=== PATIENT | male | born 1975 | race Caucasian/White ===

== ENCOUNTER 2025-02-02 09:06 | Emergency (ER) | payer BC, SELFPAY ==
[2025-02-02 09:11] VITALS: BP 135/74
[2025-02-02] MEDS: TORADOL 15 MG IV (11:15)
[2025-02-02] MEDS: TYLENOL 650 MG PO (11:16)
[2025-02-02] MEDS: NSS 1000 IV (11:16)
--- NOTE | 2025-02-02 11:26 | ED.GENMED ---
History of Present Illness
General
Chief Complaint: Fever
Source: patient
Exam Limitations: none
Time Seen by Provider: 02/02/25 09:59
Nursing documentation reviewed up to this point in time: agreed with
History of Present Illness
History of Present Illness:
49 y/o M
h/o depression
here afer noticing a red woody on R thigh, not painful, not itchy, 4 days ago
then developed symptoms of feeling fatigued, headache, malaise, and some elevated HR
he wasn't aware of a fever until last night
he went to another ER and had temp of 101 and was treated with tylenol
he ended up leaving without treatment due to long wait time
took another ose of tylenol at 1 am and woke up feeling wiped out so he came in
he also noticed his urine was dark
no syncope, neck stiffness, diffuse rash, trouble breathing, chest pain, joint effusions, confusion
pt says that he pulled a small tick off his R thigh abuot 2 weeks ago that he presumed was not on long
he has never had lyme
while riding his bike 2 days ago he had some back pain that wwas worse than he normally feels while riding
Past History
Past History
ED Past Medical History: Psychiatric
ED Past Surgical History: Orthopedic and Other ([place] teeth)
Social History
Tobacco: Non-smoker
Alcohol: Occasional
Personal:
Living: with family
Family History
Family History: Cancer; Negative Diabetes, Hypertension, Early CAD or Asthma
Review of Systems
Review of Systems
Allergies reviewed?: Yes
All Other Systems: Not applicable
Phy Exam
Physical Exam
Physical Exam:
GENERAL: Alert , in no apparent distress
EYE: pupils equal and reactive
NECK: Supple
ENT: o/p clr, mmm.
CARDIAC: Regular rate and rhythm .
LUNGS: Clear breath sounds bilaterally, no acute respiratory distress, no wheezes/rales/rhonchi
ABDOMEN: Soft, without focal tenderness, no r/g, no cvat, normal bowel sounds
NEUROLOGICAL: Alert and oriented, no focal neuro deficits, cn intact, no facial palsy
SKIN: Warm and dry, skin intact.
annular flat erytheatmous plaque with deeper red int he center, more pink on the outside; no central clearing
MUSCULOSKELETAL: No edema, well perfused. neg isabel's sign
PSYCH: Normal and appropriate interaction.
Sepsis
Sepsis Screening
Sepsis Assessment: Sepsis Ruled Out
Sepsis Screen
Sepsis Screen: Sepsis Ruled Out
Date: 02/02/25
Time: 17:08
Course
Orders/Labs/Results
Orders:
Orders
02/02/25 10:36
0.9% Sodium Chloride 1000 ml [Nss] 1,000 ml IV BOLUS
Acetaminophen [Tylenol] 650 mg PO NOW STA
Ketorolac [Toradol] 15 mg IV NOW STA
02/02/25 11:00
Lyme Progressive Urgent
02/02/25 11:08
CPK [Creatine Phosphokinase] Urgent
Complete Blood Count/With Diff Urgent
Comprehensive Metabolic Panel Urgent
Lactic Acid Urgent
Urinalysis Reflex To Culture Urgent
Date Specimen was Collected: 02/02/25
Time Specimen was Collected: 10:41
Urine Microscopic Reflex Cult Urgent
Blood Culture Urgent
AIDE Source: Blood/Venous
Specimen Description:
Urine Culture Urgent
AIDE Source: U
Specimen Description:
Date Specimen was Collected: 02/02/25
Time Specimen was Collected: 10:41
02/02/25 12:21
CT Abd/pel Without Iv Or Oral Urgent
Comment:
Reason For Exam: back pain, hematuria, fever
02/02/25 13:09
0.9% Sodium Chloride 500 ml [Nss] 500 ml IV BOLUS
02/02/25 13:59
Doxycycline [Vibramycin] 100 mg PO NOW STA
02/02/25 14:08
Electrocardiogram (*1) Urgent
Reason for Study: Tachycardia
EKG- Treatment ONCE
Abnormal Lab Results
02/02/25
11:08
WBC 3.4 L 10^3/uL
(4.8-10.8)
RBC 4.59 L 10^6/uL
(4.70-6.10)
MCH 32.2 H pg
(27.0-31.0)
Absolute Lymphs (auto) 0.4 L 10^3/uL
(1.2-3.4)
Lymphocytes % 12.6 L %
(20.5-51.1)
Monocytes % 13.5 H %
(1.7-9.3)
Glucose 122 H mg/dl
(70-99)
Total Bilirubin 2.4 H mg/dl
(0.2-1.3)
Ur Occult Blood Reflex 2+ A
(Negative)
Urine Bilirubin 1+ A
(Negative)
Leukocyte Esterase Rfl 1+ A
(Negative)
Urine RBC 3-6 A /HPF
(0-2)
Urine Albumin (Reflex) 2+ A
(Neg - Trace)
02/02/25 11:08
02/02/25 11:08
Vital Signs
Initial and Last Documented VS:
Initial Vital Signs
Temp Pulse Resp BP Pulse Ox
38.6 C H 91 16 135/74 96
02/02/25 09:11 02/02/25 09:11 02/02/25 09:11 02/02/25 09:11 02/02/25 09:11
Last Documented Vital Signs
Temp Pulse Resp BP Pulse Ox
37.2 C 84 18 126/84 99
02/02/25 13:40 02/02/25 15:10 02/02/25 15:10 02/02/25 15:10 02/02/25 15:10
MDM/Problems Addressed
Differential Diagnosis Includes:
lyme disease, uti, kidney stone, viral s yndrome, cellulitis
MDM/Problems Addressed:
49 y/o M
no pmh
here with nonpainful nonitchy rash to R thigh x 4 days now with fever x 2 days with headache, bodyaches, malaise
pulled small tick off himself 2 weeks ago
no cold symptoms, cough, neck stiffness, confusion, join pain, facial palsy
did feel his hr was elevated, but wasn't aware he had a fever until ysteray
no syncope or ches tpain
well appearing
febrile
nontoxic
neck supple
lungs clear
no murmur
redness circular R thigh approx 4 cm x 3 cm with darker area in the center, not raised, not tender
could be ECM
will empirically cover with abx
therw as a quetinoa bout R back pain while riding bike 2 days ago, and now he has jose urine; with rbcs, not infected looking but also with bili
he chronically has t bili elevation he has been told int [facility]
suspect he is clinically dry
cpk normal
plt nomrla
doubt hemolytic process
*Critical Care Note
Total Time (30-74mins, 75-104mins- exclusive of procedures): Not Applicable
ED Attending Note
-
Portions of this chart may have been created with voice recognition software.� Occasional wrong word or��sound alike� substitutions may have occurred due to the inherent limitations of voice recognition software.
Discharge Plan
Departure
Patient Disposition: Home (Routine Discharge)
Date of Disposition: 02/02/25
Time of Disposition: 13:49
Patient with high blood pressure during this ER visit?: No
Condition: Fair
Covid-19: Not Applicable
Discharge Problem:
Erythema chronicum migrans, Fever
Instructions: Fever, Adult (DC), Lyme Disease (DC)
Prescriptions:
New
doxycycline hyclate 100 mg capsule
100 mg PO BID Qty: 28 0RF
Referrals:
Juju Flores CRNP [Family Provider, Family Practice] - Follow up in 2-3 days
Activity Restrictions/Additional Instructions:
I am going to presume that the rash and the fever and malaise that you have is due to Lyme disease. You should start doxycycline and take it twice a day for 2 weeks. Make sure to try this on an empty stomach with a large glass of water initially
and then wait an hour before eating. If you do not tolerate it because it causes belly pain then you can try taking it with food. Patient vary on their tolerance of doxycycline with or without an empty stomach.
Make sure to avoid sun exposure, use sunscreen while you are on this medication.
We did send a Lyme disease test. make sure to follow-up on this test result so you can tell your family doctor. If you do not hear from us in a couple of days you can call [phone] and ask for your results.
Return for neck stiffness, confusion, joint swelling, passing out, low heart rate, severe headache, or any concerns.
He did have some blood in his bilirubin in your urine but this could be from dehydration.
You should stay hydrated with lots of water. Also be aware that you do have an elevated bilirubin but this is stable from your previous 1. Your CAT scan did not show any concerns.
Interventions
Interventions:
*Risk Screen - Suicide Last Done: 02/02/25 09:11
*Neglect/Abuse Screening Last Done: 02/02/25 09:11
*Nursing Disposition Last Done: 02/02/25 15:35
ED- Neurological Assessment Last Done: 02/02/25 15:34
ED-Skin Assessment Last Done: 02/02/25 15:34
Discharge Date and Time
Discharge Date/Time: 02/02/25 15:36
Print Language: TUVALU[place]
[2025-02-02 11:28] LABS: % Basophils 0.3 % (0-2); % Eosinophils 0.3 % (0-6); % Immature Granulocytes 0.3 % (0-0.5); % Lymphocytes 12.6 % (20.5-51.1); % Monocytes 13.5 % (1.7-9.3); Absolute Lymphocytes 0.4 10^3/uL (1.2-3.4); Absolute Monocytes 0.5 10^3/uL (0.1-0.6); Absolute Neutrophils 2.5 10^3/uL (1.4-6.5); Hematocrit 40.2 % (39.0-52.0); Hemoglobin 14.8 g/dL (13.0-18.0); Mean Corp Hgb Conc. 36.8 g/dL (33.0-37.0); Mean Corpuscular Hgb 32.2 pg (27.0-31.0); Mean Corpuscular Volume 87.6 fL (80.0-94.0); Mean Platelet Volume 9.5 fL (7.4-10.4); Nucleated Red Blood Cells % 0 % (-); Platelet Count 144 10^3/uL (130-400); Red Blood Cell Count 4.59 10^6/uL (4.70-6.10); Red Cell Dist. Width 12.3 % (11.5-14.5); White Blood Cell Count 3.4 10^3/uL (4.8-10.8)
[2025-02-02 11:31] LABS: Urine Albumin 2+ (Neg - Trace); Urine Bilirubin 1+ (Negative); Urine Character Clear (Clear); Urine Color Yellow; Urine Glucose Negative (Negative); Urine Ketone Negative (Negative); Urine Leukocyte 1+ (Negative); Urine Nitrite Negative (Negative); Urine Occult Blood 2+ (Negative); Urine Urobilinogen 1+ (Neg - 1+)
[2025-02-02 11:36] LABS: ALT (SGPT) 14 U/L (0-50); AST (SGOT) 19 U/L (17-59); Albumin 3.8 g/dl (3.5-5.0); Alkaline Phosphatase 61 U/L (38-126); Blood Urea Nitrogen 15 mg/dl (9-20); Calcium 8.4 mg/dl (8.4-10.2); Carbon Dioxide 24 mmol/L (22-30); Chloride 104 mmol/L (98-107); Creatine Phosphokinase 67 U/L (55-170); Glucose 122 mg/dl (70-99); Potassium 3.8 mmol/L (3.5-5.1); Sodium 136 mmol/L (135-145); Total Bilirubin 2.4 mg/dl (0.2-1.3); Total Protein 6.5 g/dl (6.3-8.2); eGFR > 60.00
[2025-02-02 12:10] LABS: Urine Squamous Cell 0-2 /LPF (Few)
[2025-02-02 13:40] VITALS: BP 130/81
[2025-02-02] MEDS: NSS 500 IV (13:46)
[2025-02-02] MEDS: VIBRAMYCIN 100 MG PO ×2 (14:49)
[2025-02-02 15:10] VITALS: BP 126/84
[2025-02-03 13:57] LABS: Lyme Antibody Screen, EIA Negative (Negative)
== END 2025-02-02 15:36 | disposition home or self-care (01) ==
LOC: EMR 09:06
PROVIDERS: Emergency Medicine; Physician Assistant; EMERGENCY PHYSICIAN Emergency Medicine; FAMILY PHYSICIAN Nurse Practitioner
DX: L53.8 Other specified erythematous conditions (principal); R50.9 Fever, unspecified
CPT/HCPCS: 99284; 96374; 96361; 74176; 80053; 81003; 81015; 82550; 83605; 85025; 86618; 87040; 87086; 93005

== ENCOUNTER → 2025-05-13 17:17 | Outpatient (REF) | payer BC, SELFPAY | LOC: RAD 17:17 | PROVIDERS: ATTENDING PHYSICIAN Physician Assistant | DX: U07.1 COVID-19 (principal) | CPT/HCPCS: 71046 ==